=== PATIENT | female | born 1935 | race Caucasian/White ===

== ENCOUNTER 2018-08-09 12:15 | Inpatient (IN) | payer OTHER ==
[~2018-08-09] VITALS: Ht 142.2 cm; Wt 68.0 kg
[~2018-08-09 12:15] MED LIST: COZAAR50 MG PO; GABAPENTIN600 MG PO; LODINE XL500 MG PO; PEPCID40 MG PO; PREDNISOLONE SO10 MG PO; SINGULAIR10 MG PO; SYNTHROID88 MCG PO; XANAX0.25 MG PO
[2018-08-09] MEDS ORDERED: PLAVIX75 MG PO (13:53)
[2018-08-09] MEDS ORDERED: INDUR PO (13:53)
[2018-08-09] MEDS ORDERED: ADVAIR (13:54)
[2018-08-09] MEDS ORDERED: PREVACID30 MG PO (13:54)
[2018-08-09] MEDS ORDERED: NORVASC5 MG PO (13:54)
[2018-08-17] MEDS ORDERED: ISOSORBIDE DINI30 MG PO (15:24)
[2018-08-17] MEDS ORDERED: ADVAIR 100-501 EACH (15:25)
== END 2018-08-22 17:39 | DRG 876 ==
LOC: SURG 08-16 09:10 → O/R 08-16 09:10 → SURH 08-16 11:23 → SURG 08-16 14:48
PROVIDERS: ADMIT Colon & Rectal Surgery
PROC: 0DBP0ZZ Excision of Rectum, Open Approach (ICD-10-PCS; 2018-08-16)
PROC: 0DQR0ZZ Repair Anal Sphincter, Open Approach (ICD-10-PCS; 2018-08-16)
PROC: 0DUR0KZ Supplement Anal Sphincter with Nonautologous Tissue Substitute, Open Approach (ICD-10-PCS; 2018-08-16)
PROC: 0DJD8ZZ Inspection of Lower Intestinal Tract, Via Natural or Artificial Opening Endoscopic (ICD-10-PCS; 2018-08-16)
PROC: 0JQC0ZZ Repair Pelvic Region Subcutaneous Tissue and Fascia, Open Approach (ICD-10-PCS; principal; 2018-08-16 12:30)
DX: F33.2 Major depressive disorder, recurrent severe without psychotic features (principal); E27.49 Other adrenocortical insufficiency; K62.3 Rectal prolapse; N81.6 Rectocele; R15.9 Full incontinence of feces; E03.8 Other specified hypothyroidism